=== PATIENT | female | born 1990 | race American Indian/Alaskan Native ===

== ENCOUNTER 2016-05-30 20:46 | Emergency (ER) | payer SELFPAY ==
--- NOTE | 2016-05-31 03:46 | Emergency Department Report ---
- General Chief complaint: Pain General Stated complaint: LUMP ON R BREAST Time Seen by Provider: 05/31/16 03:37 Source: patient Mode of arrival: Ambulatory Limitations: No Limitations - History of Present Illness Initial comments: Patient c/o red lump on her right breast that began 1 week ago. States was getting bigger, drained a little, and started to reduce in size x few days. States experiences pain sometimes. Denies fever, chills, nausea, vomit. Denies other acute complaints today. LMP 05/25/16 - Related Data Previous Rx's Medication Instructions Recorded Last Taken Type Sulfamethoxazole/Trimethoprim 1 each PO BID #10 tablet 05/31/16 Unknown Rx [Bactrim DS TAB] Allergies Allergy/AdvReac Type Severity Reaction Status Date / Time No Known Allergies Allergy Verified 11/11/15 20:30 Abscess Boil HPI - HPI Chief Complaint: Pain General Stated Complaint: LUMP ON R BREAST Time Seen by Provider: 05/31/16 03:37 Home Medications: Previous Rx's Medication Instructions Recorded Last Taken Type Sulfamethoxazole/Trimethoprim 1 each PO BID #10 tablet 05/31/16 Unknown Rx [Bactrim DS TAB] Allergies/Adverse Reactions: Allergies Allergy/AdvReac Type Severity Reaction Status Date / Time No Known Allergies Allergy Verified 11/11/15 20:30 ED Review of Systems ROS: Stated complaint: LUMP ON R BREAST Other details as noted in HPI Comment: All other systems reviewed and negative ED Past Medical Hx - Past Medical History Previous Medical History?: No Hx Hypertension: No Hx Congestive Heart Failure: No Hx Diabetes: No Hx Deep Vein Thrombosis: No Hx Renal Disease: No Hx Sickle Cell Disease: No Hx Seizures: No Hx Asthma: No Hx COPD: No Hx HIV: No - Surgical History Past Surgical History?: Yes Hx Cholecystectomy: Yes Additional Surgical History: , D&C, T&A - Social History Smoking Status: Current Every Day Smoker Substance Use Type: Alcohol - Medications Home Medications: Home Medications Medication Instructions Recorded Confirmed Last Taken Type Sulfamethoxazole/Trimethoprim 1 each PO BID #10 tablet 05/31/16 Unknown Rx [Bactrim DS TAB] ED Physical Exam - General Limitations: No Limitations General appearance: alert, in no apparent distress - Head Head exam: Present: atraumatic, normocephalic - Eye Eye exam: Present: normal appearance, PERRL, EOMI. Absent: scleral icterus, conjunctival injection, periorbital swelling, periorbital tenderness - Neck Neck exam: Present: normal inspection, full ROM. Absent: tenderness - Respiratory Respiratory exam: Present: normal lung sounds bilaterally. Absent: respiratory distress - Cardiovascular Cardiovascular Exam: Present: regular rate, normal rhythm - Extremities Exam Extremities exam: Present: normal inspection, full ROM - Neurological Exam Neurological exam: Present: alert, oriented X3, normal gait, reflexes normal. Absent: motor sensory deficit - Psychiatric Psychiatric exam: Present: normal affect, normal mood - Skin Skin exam: Present: warm, dry, intact, rash (1 cm abscess w/o fluctuance at 8 O' clock of right breast. Abscess appears wrinkled and shrinking in size. No induration. No tenderness. Rests of brest exam unremarkable b/l.) ED Course Vital Signs 05/30/16 20:58 Temperature 98.7 F Pulse Rate 100 H Respiratory 18 Rate Blood Pressure 123/73 O2 Sat by Pulse 100 Oximetry Critical care attestation.: If time is entered above; I have spent that time in minutes in the direct care of this critically ill patient, excluding procedure time. ED Disposition Clinical Impression: Abscess of breast Disposition: DISCHARGED TO HOME OR SELFCARE Is pt being admited?: No Does the pt Need Aspirin: No Condition: Stable Instructions: Abscess (ED) Prescriptions: Gentamicin 0.3% Ophth Soln 2 drops OP Q4H #1 bottle Referrals: [facility] [Outside] - 2-3 Days PRIMARY CARE,MD [Primary Care Provider] - 2-3 Days
[2016-05-31 04:58] VITALS: BP 126/68
== END 2016-05-31 05:00 | disposition home or self-care (01) ==
LOC: ED 20:46
DX: N61.1 Abscess of the breast and nipple (principal); F17.200 Nicotine dependence, unspecified, uncomplicated
CPT/HCPCS: 99282

== ENCOUNTER 2016-12-15 22:05 | Emergency (ER) | payer SELFPAY ==
[2016-12-15 22:18] VITALS: BP 128/78
== END 2016-12-15 22:40 | disposition left against medical advice (07) ==
LOC: ED 22:05
DX: R11.0 Nausea (principal); M54.9 Dorsalgia, unspecified; Z53.21 Procedure and treatment not carried out due to patient leaving prior to being seen by health care provider

== ENCOUNTER 2020-07-15 13:55 | Outpatient (CLI) | payer MEDICAID | END 2020-07-15 17:30 | disposition home or self-care (01) | LOC: LAB 13:55 → APU 17:08 → LAB 17:30 | PROVIDERS: ATTEND Obstetrics & Gynecology | DX: O26.891 Other specified pregnancy related conditions, first trimester (principal); Z67.41 Type O blood, Rh negative; Z3A.01 Less than 8 weeks gestation of pregnancy | CPT/HCPCS: 86850; 86900; 86901; 96372; J2790 ==